=== PATIENT | male | born 1990 ===

== ENCOUNTER 2019-05-03 07:38 | Emergency (ER) | payer OTHER ==
[~2019-05-03] VITALS: Ht 167.6 cm; Wt 86.2 kg
[2019-05-03 07:40] VITALS: BP 152/96; Ht 167.6 cm; Wt 86.2 kg
== END 2019-05-03 08:07 | disposition other institution (70) ==
LOC: ED 07:38
DX: Z02.89 Encounter for other administrative examinations (principal)